=== PATIENT | female | born 1945 | race Caucasian/White ===

== ENCOUNTER → 2018-11-07 | Outpatient (CLI) | payer OTHER ==
--- NOTE | 2018-11-08 11:18 | Diagnostic Imaging Report ---
Solid-phase gastric emptying study Reason for examination: Post-prandial abdominal pain The protocol used for this study is based on the Consensus Recommendations for Gastric Scintigraphy by the [place] [employer] and the Society of Nuclear Medicine. Clinical information: The patient is not diabetic. The patient has not had prior gastrointestinal surgery. The patient is not on any medications expected to affect gastric motility. The patient has been fasting for at least 6 hours prior to this exam. Radiopharmaceutical: Tc-99m sulfur colloid 1 mCi Report: The radiopharmaceutical was added to 1/2 cup egg whites that were then prepared and served with 2 pieces of white bread toasted, 30 grams of jam and 4 ounces of water. The patient took the meal orally without difficulty. Images were obtained of the abdomen in the anterior and posterior projections at 10 minutes post the meal and at 1, 2, 3, and 4 hours. Uptake was determined from the geometric mean of the anterior and posterior counts and the counts were corrected for decay of the radiolabel. The percent gastric retention of the labeled meal at: 1 hour was 91% (normal 30-90%) 2 hours was 52% (normal <60%) 3 hours was 10% (normal <30%) 4 hours was 3% (normal <10%) Impression: Normal gastric emptying pattern. The findings do not support the clinical diagnosis of gastroparesis. Signed by: Dr. Clarice Trammell M.D. on 11/08/2018 11:15 AM
== END ==
LOC: NM 08:28
PROVIDERS: ATTEND Internal Medicine Gastroenterology
DX: R10.13 Epigastric pain (principal); R13.10 Dysphagia, unspecified; I10 Essential (primary) hypertension; E66.3 Overweight; Z71.3 Dietary counseling and surveillance
CPT/HCPCS: 78264; A9541

== ENCOUNTER → 2018-11-16 | Outpatient (CLI) | payer MEDICARE ==
--- NOTE | 2018-11-16 20:28 | Diagnostic Imaging Report ---
Hepatobiliary Scan with Gallbladder Ejection Fraction Clinical information: RUQ abdominal pain Technique: Following intravenous administration of 6.6 millicuries of Tc-99m mebrofenin, dynamic images of the abdomen in the anterior projection were obtained through 25 minutes. Sincalide (CCK analog) 1.5 micrograms was administered intravenously over 30 minutes with additional imaging for determination of gallbladder ejection fraction. Discussion: Perfusion of the liver is normal. Extraction of tracer by the liver parenchyma is normal. Tracer appears promptly within the biliary tract. The gallbladder begins to fill by 14 minutes post injection of tracer and fills adequately. Tracer is seen in the small bowel during the sincalide infusion. The gallbladder ejection fraction with sincalide is 26% (normal greater than 40%). Impression: 1. Filling of the gallbladder excludes acute cystic duct obstruction/acute cholecystitis. 2. The decreased gallbladder ejection fraction of 26% supports the clinical diagnosis of chronic cholecystitis/gallbladder dyskinesia. Signed by: Dr. Clarice Trammell M.D. on 11/16/2018 8:25 PM
== END ==
LOC: NM 11:18
PROVIDERS: ATTEND Internal Medicine
DX: R10.11 Right upper quadrant pain (principal)
CPT/HCPCS: 78227; A9537

== ENCOUNTER → 2019-04-05 | Outpatient (CLI) | payer MEDICARE ==
[~2019-04-05] MED LIST: BENICAR20 MG PO; ESTRADIOL1 MG PO; LIVALO2 MG PO; OMEPRAZOLE40 MG PO; POTASSIUM CITR10 MEQ PO; SYNTHROID75 MCG PO; VAGIFEM; [UNRECOGNIZED DRUG - OTHER] PO; [UNRECOGNIZED DRUG - OTHER] TOP; allegra PO
--- NOTE | 2019-04-05 09:45 | Diagnostic Imaging Report ---
EXAM: Gallbladder Ultrasound INDICATION: Epigastric pain ^[id number] ^0840 ^EPIG PAIN COMPARISON: None. TECHNIQUE: Transverse and longitudinal images of the gallbladder were obtained. FINDINGS: Liver: Increased hepatic echogenicity could be due to fatty infiltration. Normal in size measuring 13.9 cm. Main portal vein and normal in appearance with normal blood flow measuring 0.8 cm. Right kidney normal in appearance measuring 9.1 cm. Pancreas grossly unremarkable. Abdominal aorta grossly unremarkable measuring 1.8 cm. Inferior vena cava patent. Common bile duct measures 0.4 cm. Mild amount of sludge in the lumen of the gallbladder. No gallbladder wall thickening or pericholecystic fluid. Gallbladder wall measures 0.2 cm. Sonographic Mallory sign is negative. IMPRESSION: Increased hepatic echogenicity could be due to fatty infiltration. Mild sludge in the lumen of the gallbladder. No ductal dilatation. Signed by: Dr. Mika Ponce M.D. on 04/05/2019 9:42 AM
== END ==
LOC: US 08:07
PROVIDERS: ATTEND Surgery
DX: R10.13 Epigastric pain (principal)
CPT/HCPCS: 76705

== ENCOUNTER 2019-04-17 06:28 | Inpatient (IN) | payer MEDICARE ==
[2019-04-12 15:32] LABS: BILIRUBIN,URINE NEGATIVE (NEGATIVE); CLARITY,URINE SL CLOUDY (CLEAR); COLOR,URINE YELLOW (YELLOW); KETONES,URINE NEGATIVE (NEGATIVE); LEUKOCYTE ESTERASE ,URINE NEGATIVE (NEGATIVE); NITRITE,URINE NEGATIVE (NEGATIVE); PROTEIN,URINE DIPSTICK NEGATIVE (NEGATIVE); URINE UROBILINOGEN 0.2 mg/dL (0.2 - 1)
[2019-04-12 15:36] LABS: BASOPHILS % 0.5 % (0.0-1.0); EOSINOPHILS # (AUTO) 0.1 (0.0-0.4); HEMATOCRIT 38.9 % (34.2-44.1); HEMOGLOBIN 12.9 g/dL (12.0-16.0); LYMPHOCYTES # (AUTO) 2.5 (1.0-3.2); LYMPHOCYTES % 38.2 % (18.0-39.1); MEAN CORPUSCULAR HGB CONC 33.2 g/dL (31-35); MEAN CORPUSCULAR VOLUME 96.5 fL (81-99); MONOCYTES # (AUTO) 0.6 (0.2-0.8); MONOCYTES % 8.8 % (4.4-11.3); NEUTROPHILS # (AUTO) 3.3 (2.1-6.9); NEUTROPHILS % 50.2 % (38.7-80.0); PLATELET COUNT 270 x10e3/uL (140-360); RED BLOOD COUNT 4.03 x10e6/uL (3.6-5.1); RED CELL DISTRIBUTION WIDTH 11.9 % (11.7-14.4)
[2019-04-12 16:00] LABS: ALANINE AMINOTRANSFERASE 15 IU/L (0-55); ALBUMIN 3.5 g/dL (3.5-5.0); ALKALINE PHOSPHATASE 64 IU/L (40-150); ANION GAP 14.3 mmol/L (8-16); BLOOD UREA NITROGEN 22 mg/dL (7-26); BUN/CREATININE RATIO 25 (6-25); CALCIUM 9.9 mg/dL (8.4-10.2); CARBON DIOXIDE 25 mmol/L (22-29); CHLORIDE 103 mmol/L (98-107); CREATININE, SERUM 0.88 mg/dL (0.57-1.11); EST GLOMERULAR FILTRATION RATE > 60 ML/MIN (60-); GLUCOSE 84 mg/dL (74-118); POTASSIUM 4.3 mmol/L (3.5-5.1); SODIUM 138 mmol/L (136-145)
--- NOTE | 2019-04-12 16:39 | Diagnostic Imaging Report ---
EXAMINATION: CHEST 2 VIEWS INDICATION: Pre-operative COMPARISON: None FINDINGS: LINES/TUBES:None LUNGS:The lungs are well-inflated. No focal consolidation or pulmonary edema. PLEURA:No pleural effusion or pneumothorax. MEDIASTINUM:The cardiomediastinal silhouette appears normal in size and shape. BONES/SOFT TISSUES:No acute osseous injury. ABDOMEN:No free air under the diaphragm. IMPRESSION: No focal pneumonia or pulmonary edema. Signed by: Bulmaro Tracey MD on 04/12/2019 4:35 PM
[~2019-04-17] VITALS: Ht 162.6 cm; Wt 68.0 kg
[~2019-04-17 06:28] MED LIST changes: -allegra PO
--- OUTSIDE RECORDS SUMMARY | 2019-04-17 06:46 | XMS REPORT ---
Author Author [facility] Address Unknown Phone Unavailable Care Team Providers Care Franchise Manager Name Role Phone Sushma ESPANA Unavailable Unavailable ROSY ALCOCER Unavailable Unavailable Beth RIZVI Unavailable Unavailable Problems This patient has no known problems. Allergies, Adverse Reactions, Alerts This patient has no known allergies or adverse reactions. Medications This patient has no known medications. Results Test Description Test Time Test Comments Text Results Atomic Results Result Comments CHEST 2 VIEWS 2019-04-12 16:35:00 [place] [address] Patient Name: LAWRENCE BO MR #: [id number] : 1945 Age/Sex: 73/F Req #: [id number] Adm Physician: Ordered by: STEPHY ESPANA MD Report #: [id number] Location: [place] Room/Bed: Procedure: [id number] DX/CHEST 2 VIEWS Exam Date: Exam Time: REPORT STATUS: Signed EXAMINATION: CHEST 2 VIEWS INDICATION: Pre-operative COMPARISON: None FINDINGS: LINES/TUBES:None LUNGS:The lungs are well- inflated. No focal consolidation or pulmonary edema. PLEURA:No pleural effusion or pneumothorax. MEDIASTINUM:The cardiomediastinal silhouette appears normal in size and shape. BONES/SOFT TISSUES:No acute osseous injury. ABDOMEN:No free air under the diaphragm. IMPRESSION: No focal pneumonia or pulmonary edema. Signed by: Maria Isabel Santos MD on 04/12/2019 4:35 PM Dictated By: MARIA ISABEL SANTOS MD 34 Transcribed By: TETO on 04/12/191634 COPY TO: STEPHY ESPANA MD US GALLBLADDER 2019-04-05 09:40:00 [place] [address] Patient Name: LAWRENCE BO MR #: [id number] : 1945 Age/Sex: 73/F Req #: [id number] Adm Physician: Ordered by: STEPHY ESPANA MD Report #: [id number] Location: Room/Bed: Procedure: [id number] US/US GALLBLADDER Exam Date: 04/05/19 Exam Time: 40 REPORT STATUS: Signed EXAM: Gallbladder Ultrasound INDICATION: Epigastric pain [id number] EPIG PAIN COMPARISON: None. TECHNIQUE: Transverse and longitudinal images of the gallbladder were obtained. FINDINGS: Liver: Increased hepatic echogenicity could be due to fatty infiltration. Normal in size measuring 13.9 cm. Main portal vein and normal in appearance with normal blood flow measuring 0.8 cm. Right kidney normal in appearanc e measuring 9.1 cm. Pancreas grossly unremarkable. Abdominal aorta grossly unremarkable measuring 1.8 cm. Inferior vena cava patent. Common bile duct measures 0.4 cm. Mild amount of sludge in the lumen of the gallbladder. No gallbladder wall thickening or pericholecystic fluid. Gallbladder wall measures 0.2 cm. Sonographic Mallory sign is negative. IMPRESSION: Increased hepatic echogenicity could be due to fatty infiltration. Mild sludge in the lumen of the gallbladder. No ductal dilatation. Signed by: Dr. Mika Ponce M.D. on 04/05/2019 9:42 AM Dictated By: MIKA PONCE MD, MD 1 Transcribed By: TETO on 04/05/19941 COPY TO: STEPHY ESPANA MD HEPTOBILIARY W PHARM 2018-11-16 20:23:00 [place] [address] Patient Name: LAWRENCE BO MR #: [id number] : 1945 Age/Sex: 73/F Req #: [id number] Adm Physician: Ordered by: ROSY ALCOCER MD Report #: [id number] Location: [place] Room/Bed: Procedure: [id number] NM/HEPTOBILIARY W PHARM Exam Date: 11/16/18 Exam Time: 1200 REPORT STATUS: Signed Hepatobiliary Scan with Gallbladder Ejection Fraction Clinical information: RUQ abdominal pain Technique: Following intravenous administration of 6.6 millicuries of Tc-99m mebrofenin, dynamic images of the abdomen in the anterior projection were obtained through 25 minutes. Sincalide (CCK analog) 1.5 micrograms was administered intravenously over 30 minutes with additional imaging for determination of gallbladder ejection fraction. Discussion: Perfusion of the liver is normal. Extraction of tracer by the liver parenchyma is normal. Tracer appears promptly within the biliary tract. The gallbladder begins to fill by 14 min utes post injection of tracer and fills adequately. Tracer is seen in the small bowel during the sincalide infusion. The gallbladder ejection fraction with sincalide is 26% (normal greater than 40%). Impression: 1. Filling of the gallbladder excludes acute cystic duct obstruction/acute cholecystitis. 2. The decreased gallbladder ejection fraction of 26% supports the clinical diagnosis of chronic cholecystitis/gallbladder dyskinesia. Signed by: Dr. Philip Trammell M.D. on 11/16/2018 8:25 PM Dictated By: PHILIP TRAMMELL MD 24 COPY TO: ROSY ALCOCER MD GASTRIC EMPTYING 2018-11-08 11:13:00 [place] [address] Patient Name: LAWRENCE BO MR #: [id number] : 1945 Age/Sex: 73/F Req #: [id number] [facility] [place] Physician: Ordered by: DILLON RIZVI MD Report #: [id number] Location: [place] Room/Bed: Procedure: [id number] NM/GASTRIC EMPTYING Exam Date: 11/07/18 Exam Time: 0900 REPORT STATUS: Signed Solid-phase gastric emptying study Reason for examinat ion: Post-prandial abdominal pain The protocol used for this study is based on the Consensus Recommendations for Gastric Scintigraphy by the [place] [employer] and the Society of Nuclear Medicine. Clinical information: The patient is not diabetic. The patient has not had prior gastrointestinal surgery. The patient is not on any medications expected to affect gastric motility. The patient has been fasting for at least 6 hours prior to this exam. Radiopharmaceutical: Tc-99m sulfur colloid 1 mCi Report: The radiopharmaceutical was added to 1/2 cup egg whites that were then prepared and served with 2 pieces of white bread toasted, 30 grams of jam and 4 ounces of water. The patient took the meal orally without difficulty. Images were obtained of the abdomen in the anterior and posterior projections at 10 minutes post the meal and at 1, 2, 3, and 4 hours. Uptake was determined from the geometric mean of the anterior and posterior counts and the counts were corrected for decay of the radiolabel. The percent gastric retention of the labeled meal at: 1 hour was 91% (normal 30-90%) 2 hours was 52% (normal <60%) 3 hours was 10% (normal <30%) 4 hours was 3% (normal <10%) Impression: Normal gastric emptying pattern. The findings do not support the clinical diagnosis of gastroparesis. Signed by: Dr. Philip Trammell M.D. on 11/08/2018 11:15 AM Dictated By: PHILIP TRAMMELL MD 1115 Transcribed By: TETO on 11/08/181114 COPY TO: DILLON RIZVI MD
[2019-04-17] MEDS ORDERED: allegra PO (07:42)
[2019-04-17] MEDS ORDERED: BUPIVACAINE 0.25%/EPI 30ML SDV INJ ONE (07:52)
[2019-04-17] MEDS: SODIUM CHLORIDE 0.9% 1000ML 1,000 ML IV SCH (10:59)
[2019-04-17] MEDS: SODIUM CHLORIDE 0.9% 250ML IRRIG IR SCH ×5 (11:00→23:15)
[2019-04-17] MEDS ORDERED: PANTOPRAZOLE 40 MG 10ML VIAL IV SCH (11:00)
[2019-04-17] MEDS ORDERED: ACETAMINOPHEN 1000 MG/100 ML IV PRN (11:00)
[2019-04-17] MEDS ORDERED: HYDROMORPHONE 1MG/1ML INJ ONE ×2 (12:20→12:56)
--- NOTE | 2019-04-17 13:16 | Operative Report ---
DATE OF PROCEDURE: 04/17/2019 SURGEON: Dayton Soriano MD PREOPERATIVE DIAGNOSES: Hiatal hernia with gastroesophageal reflux disease and cholecystitis with gallbladder sludge. POSTOPERATIVE DIAGNOSES: Hiatal hernia with gastroesophageal reflux disease and cholecystitis with gallbladder sludge. OPERATIONS PERFORMED: Laparoscopic hiatal hernia repair with Jimi fundoplication and cholecystectomy. DISTRIBUTION ESTIMATOR: Rey Soriano MD. ANESTHESIA: General. COMPLICATIONS: None. ESTIMATED BLOOD LOSS: Minimal. DESCRIPTION OF PROCEDURE: With the patient lying in the bed in supine position under good general endotracheal anesthesia, the abdomen was prepped with Betadine solution and draped in the usual manner. A Veress needle was introduced in the left upper abdomen and pneumoperitoneum was established without any difficulty. An 11 mm trocar was placed in the left mid abdomen and a 10 mm video laparoscope was placed into the intraabdominal cavity. Under direct vision, two 5 mm trocars were placed in the subxiphoid area. Another 5 mm trocar was placed in the right subcostal area and another 11 mm trocar was placed in the left upper quadrant. Video laparoscopy at this point revealed some adhesions to the gallbladder. The rest of the abdominal exploration was within normal limits except for the hiatus, where there was some moderate size hiatal hernia. We decided to proceed with a hiatal hernia first. Using the Harmonic device, the right crura was exposed first and the esophagus was identified and circumferentially mobilized. The hiatal hernia was then reduced back to the intraabdominal cavity. The short gastrics were then taken down. After this was done, we had a good intraabdominal portion of the esophagus. There was a moderate size hiatal hernia present, which was closed by approximating the right and left crura with 4 sutures of 0 Ethibond. This gave us satisfactory repair without any tension. The patient had a bougie placed in the stomach prior to the repair. After this was done, the previously freed up fundus of the stomach was then brought in the retroesophageal position and the Jimi fundoplication was then performed using interrupted sutures of 0 Ethibond, bringing one side of the fundus to the anterior esophagus to the other side of the fundus. Three sutures were necessary. This created a nice floppy Jimi fundoplication without any tension whatsoever. After this was done, the bougie was removed. The NG tube was then placed in the stomach without any difficulty and perfect hemostasis was ascertained. We then went ahead and proceeded to do the cholecystectomy. The adhesions to the neck of the gallbladder were then slowly and carefully taken down. The peritoneum overlying the neck of the gallbladder was then opened and the cystic duct was identified. The cystic duct was followed to its junction with the common duct. The cystic duct was then circumferentially dissected away from the common duct, doubly clipped and divided. The cystic artery was similarly doubly clipped and divided. The gallbladder was then slowly and carefully taken off the liver bed using the cautery scissors and perfect hemostasis was ascertained. The gallbladder was then grasped through the umbilical port and removed without any difficulty. Video laparoscopy was then again carried out. The liver bed was found to be perfectly dry. The hiatus was similarly dry. All the excess fluid was aspirated. The pneumoperitoneum was evacuated and all the trocars were removed under direct vision. The fascia of the 11 mm trocars was approximated with 0 Vicryl. All layers were infiltrated on the way out with solution of 0.25% Marcaine. Subcutaneous tissue was approximated with 3-0 Vicryl and the skin was closed with subcuticular 5-0 Vicryl. Benzoin, Steri-Strips, and Band-Aids were applied. The sponge, lap, and needle count was correct. The patient tolerated the procedure well and returned to the recovery room in stable condition. MD BIANCA Arcos/YASMEEN /[id number]
--- NOTE | 2019-04-17 13:25 | NUR ---
ARRIVED VIA STRETCHER FROM PACU, AA&OX3, 2LNC , NGT TO Horacio GARCIA, PER PACU NURSE ANA HUANG, "MD Kareem ESPANA IS AWARE OF NOTHING COMING OUT OF NGT AND THAT NOTHING IS TO GO IN AT THIS TIME", PT AWAKE AT THIS TIME, ORIENTED TO ROOM AND CALL LIGHT SYSTEM, CALL LIGHT WITHIN REACH
[2019-04-17 13:48] VITALS: BP 130/61
[2019-04-17 13:56] VITALS: BP 124/66
[2019-04-17 14:13] VITALS: BP 130/61
--- NOTE | 2019-04-17 15:20 | NUR ---
SPOKE WITH MD Kareem ESPANA PER PT REQUEST, STATES SORE THROAT, ORDERS NOTED
[2019-04-17] MEDS ORDERED: LIDOCAINE HCL 2% LOCAL INJ 5 ML SDV VIAL INJ ONE (15:28)
[2019-04-17] MEDS ORDERED: GLYCOPYRROLATE INJ 1MG/ 5 ML SYR ONE (15:28)
[2019-04-17] MEDS ORDERED: ONDANSETRON HCL INJ 2MG/ML 2ML 2 MG/ML VIAL ONE (15:28)
[2019-04-17] MEDS ORDERED: FENTANYL CITRATE/PF 100MCG/2 ML INJ ONE (15:28)
[2019-04-17] MEDS ORDERED: DEXAMETHASONE SOD PHOS INJ 4 MG/ML VIAL ONE (15:28)
[2019-04-17] MEDS ORDERED: PROPOFOL IV EMULSION 10 MG/ML 20 ML VIAL ONE (15:28)
[2019-04-17] MEDS ORDERED: SEVOFLURANE INHAL SOLN 250 ML PEN BTL ONE (15:28)
[2019-04-17] MEDS ORDERED: EPHEDRINE SULFATE INJ 50 MG/10 ML SYR ONE (15:28)
[2019-04-17] MEDS ORDERED: MIDAZOLAM HCL 2 MG/2 ML VIAL ONE (15:28)
[2019-04-17] MEDS ORDERED: NEOSTIGMINE 5 MG/5ML SYR ONE (15:28)
[2019-04-17] MEDS ORDERED: ROCURONIUM BROMIDE 10 MG/ML 5ML VIAL ONE (15:28)
[2019-04-17] MEDS ORDERED: CHLORASEPTIC SPRAY 177 ML BTL MM PRN (15:30)
[2019-04-17 15:46] VITALS: BP 133/60
--- NOTE | 2019-04-17 15:46 | NUR ---
WITH STANDBY ASSIST, PT OOB TO BEDSIDE COMMODE, CALL LIGHT WITHIN REACH, PT REQUESTING TO SIT FOR A WHILE, AT SIDE
[2019-04-17] MEDS: ONDANSETRON HCL INJ 2MG/ML 2ML 2 MG/ML VIAL IV PRN ×2 (16:07→20:26)
--- NOTE | 2019-04-17 16:11 | NUR ---
PT ASSISTED BACK TO BED, C/O FEELING "LITTLE NAUSEATED AND HOT", PT MEDICATED PER MD ORDER FOR NAUSEA 121/69, HR 66, 92-94%, 16 RR, CALL LIGHT WITHIN REACH, EDUCATED TO CALL PRIOR TO GETTING UP, PT VERBALIZED UNDERSTANDING, AT BEDSIDE
--- NOTE | 2019-04-17 16:32 | NUR ---
PT RESTING IN BED, STATES "FEELS BETTER", CALL LIGHT WITHIN REACH
--- NOTE | 2019-04-17 17:48 | NUR ---
MD Kareem ESPANA INTO SEE PT, DISCUSSED POC, ADJUSTED NGT AND IRRIGATED , PT TOLERATED WELL, CALL LIGHT WITHIN REACH
--- NOTE | 2019-04-17 19:00 | NUR ---
RECEIVED PATIENT IN BEDSIDE SHIFT REPORT. PATIENT STATES SHE HAS SOME STRONG PAIN IN HER SHOULDERS FROM GAS BUILDUP, /, AND IN HER THROAT FROM THE NG TUBE. WILL PROVIDE MEDICATION WHEN AVAILABLE. NG TUBE TO R NARE WITH LOW CONTINUOUS SUCTION. R HAND IV ASYMPTOMATIC, INTACT, AND PATENT, RUNNING NS AT 100ML/HR. SCDS AND ILDA HOSE IN PLACE. BEDSIDE COMMODE IN ROOM, PATIENT REMINDED TO CALL FOR ASSISTANCE UP, VERBALIZED UNDERSTANDING. NO S&S OF DISTRESS NOTED. BED LOCKED IN LOWEST POSITION, SIDE RAILS UPX2, CALL LIGHT IN REACH.
[2019-04-17 20:00] VITALS: BP 118/59
[2019-04-17] MEDS: HYDROMORPHONE 1MG/1ML INJ IV PRN (20:26)
[2019-04-17] MEDS: PANTOPRAZOLE 40 MG 10ML VIAL IV SCH (20:26)
[2019-04-18] VITALS (9 sets, daily range): BP systolic 118–150; BP diastolic 59–78
[2019-04-18] MEDS: SODIUM CHLORIDE 0.9% 1000ML 1,000 ML IV SCH ×3 (01:11→18:37)
[2019-04-18] MEDS: SODIUM CHLORIDE 0.9% 250ML IRRIG IR SCH ×3 (03:10→11:00)
[2019-04-18] MEDS: HYDROMORPHONE 1MG/1ML INJ IV PRN ×3 (04:46→19:39)
[2019-04-18] MEDS: ONDANSETRON HCL INJ 2MG/ML 2ML 2 MG/ML VIAL IV PRN ×2 (04:46→19:39)
[2019-04-18 05:31] LABS: BASOPHILS % 0.1 % (0.0-1.0); HEMATOCRIT 33.9 % (34.2-44.1); HEMOGLOBIN 11.1 g/dL (12.0-16.0); LYMPHOCYTES # (AUTO) 1.6 (1.0-3.2); LYMPHOCYTES % 17.4 % (18.0-39.1); MEAN CORPUSCULAR HEMOGLOBIN 31.8 pg (28-32); MEAN CORPUSCULAR HGB CONC 32.7 g/dL (31-35); MEAN CORPUSCULAR VOLUME 97.1 fL (81-99); MONOCYTES % 11.2 % (4.4-11.3); NEUTROPHILS # (AUTO) 6.3 (2.1-6.9); PLATELET COUNT 238 x10e3/uL (140-360); RED BLOOD COUNT 3.49 x10e6/uL (3.6-5.1); RED CELL DISTRIBUTION WIDTH 12.2 % (11.7-14.4)
[2019-04-18 05:53] LABS: ANION GAP 16.4 mmol/L (8-16); BLOOD UREA NITROGEN 12 mg/dL (7-26); BUN/CREATININE RATIO 13 (6-25); CARBON DIOXIDE 23 mmol/L (22-29); CHLORIDE 105 mmol/L (98-107); CREATININE, SERUM 0.91 mg/dL (0.57-1.11); EST GLOMERULAR FILTRATION RATE > 60 ML/MIN (60-); GLUCOSE 93 mg/dL (74-118); POTASSIUM 4.4 mmol/L (3.5-5.1); SODIUM 140 mmol/L (136-145)
--- NOTE | 2019-04-18 07:14 | NUR ---
pt awake alert resp even and unlabored at this time no distress noted, pt able to make needs known call light in reach. ngt in place.
--- NOTE | 2019-04-18 10:53 | NUR ---
ngt tube dc'ed, pt tolerated well.
--- NOTE | 2019-04-18 12:29 | NUR ---
IMM EXPLAINED TO PATIENT. PATIENT SIGNED, PLACED IN CHART, COPY TO CARE TRANSITIONS FOLDER
--- NOTE | 2019-04-18 14:35 | NUR ---
Visit made by the Spiritual Care Department Pastoral Visitor, Petrona Jacobs. PV provided pastoral presence, prayer, hospitality, and supportive listening. Pastoral Visitor informed pt/family of the scope of Field Agent Services and availability. LEIA CONNOR Climatologist Spiritual Care Department O: [phone] Pager: [phone] ([phone] calling from)
--- NOTE | 2019-04-18 19:00 | NUR ---
RECEIVED PATIENT IN BEDSIDE SHIFT REPORT. PATIENT RESTING IN BED AT THIS TIME. MODERATE PAIN NOTED, MEDICATED BY OFFGOING NURSE. NO S&S OF DISTRESS NOTED. REMINDED PATIENT OF IMPORTANCE OF WALKING TO RELIEVE GAS PAINS IN ABDOMEN AND CHEST AND EXPLAINED THAT IT CAN TAKE TIME FOR THE AIR TO PASS OR BE REABSORBED, PATIENT REPORTS FEELING VERY ANXIOUS ABOUT IT. WILL CONTINUE TO MONITOR. BED LOCKED IN LOWEST POSITION, SIDE RAILS UPX2, CALL LIGHT IN REACH.
--- NOTE | 2019-04-18 20:14 | NUR ---
report given to oncoming nurse, pt stable at this time
[2019-04-18] MEDS: PANTOPRAZOLE 40 MG 10ML VIAL IV SCH (21:18)
[2019-04-19] VITALS (8 sets, daily range): BP systolic 137–166; BP diastolic 68–79
[2019-04-19] MEDS: SODIUM CHLORIDE 0.9% 1000ML 1,000 ML IV SCH ×2 (02:43→17:25)
--- NOTE | 2019-04-19 03:44 | NUR ---
PATIENT AMBULATING IN HALLWAY AT THIS TIME. STEADY GAIT NOTED.
[2019-04-19] MEDS ORDERED: BISACODYL 10 MG SUPP PR ONE ×2 (16:45→17:15)
--- NOTE | 2019-04-19 19:00 | NUR ---
RECEIVED PATIENT IN BEDSIDE SHIFT REPORT. PATIENT RESTING AT THIS TIME. HEADACHE 01/18 REPORTED, DAY NURSE TO PROVIDE PAIN MEDICATION BEFORE LEAVING. NO S&S OF DISTRESS NOTED. BED LOCKED IN LOWEST POSITION, SIDE RAILS UPX2, CALL LIGHT IN REACH.
[2019-04-19] MEDS: ACETAMINOPHEN 1000 MG/100 ML IV PRN (19:04)
[2019-04-19] MEDS: PANTOPRAZOLE 40 MG 10ML VIAL IV SCH (20:08)
--- NOTE | 2019-04-19 21:10 | NUR ---
PATIENT AMBULATING IN HALLWAY AT THIS TIME. STATES BEFORE LEAVING ROOM, SHE HAD A MODERATELY SIZED BM AND PASSED GAS. STEADY GAIT NOTED.
[2019-04-20] VITALS: BP 146/70
[2019-04-20] MEDS: ACETAMINOPHEN 1000 MG/100 ML IV PRN (01:18)
[2019-04-20 04:00] VITALS: BP 149/67
[2019-04-20 07:32] VITALS: BP 150/68
[2019-04-20 07:40] VITALS: BP 150/68
[2019-04-20] MEDS: SODIUM CHLORIDE 0.9% 1000ML 1,000 ML IV SCH (08:26)
[2019-04-20] MEDS ORDERED: BISACODYL 10 MG SUPP PR ONE (09:30)
[2019-04-20 12:06] VITALS: BP 155/70
[2019-04-20] MEDS ORDERED: OLMESARTAN MEDOXOMIL 5 MG TABLET PO SCH (13:40)
[2019-04-20] MEDS ORDERED: OLMESARTAN 20 MG TAB PO SCH (15:15)
[2019-04-20 16:21] VITALS: BP 159/72
[2019-04-20] MEDS ORDERED: TYLENOL WITH C1 EACH PO (17:48)
--- NOTE | 2019-04-20 18:05 | NUR ---
PT OFF UNIT TO HOME AT THIS TIME
== END 2019-04-20 18:05 | disposition home or self-care (01) | DRG 328 ==
LOC: OR 06:28 → PACU V 11:00 → MED/SURG 13:33 → OBSVTOIN 04-20 09:20
PROVIDERS: ADMIT Surgery; ATTEND Surgery
PROC: 0DV44ZZ Restriction of Esophagogastric Junction, Percutaneous Endoscopic Approach (ICD-10-PCS; 2019-04-17)
PROC: 0BQT4ZZ Repair Diaphragm, Percutaneous Endoscopic Approach (ICD-10-PCS; 2019-04-17)
PROC: 0FT44ZZ Resection of Gallbladder, Percutaneous Endoscopic Approach (ICD-10-PCS; principal; 2019-04-17 07:30)
DX: K21.9 Gastro-esophageal reflux disease without esophagitis (principal); K44.9 Diaphragmatic hernia without obstruction or gangrene; K81.9 Cholecystitis, unspecified; K82.8 Other specified diseases of gallbladder; I10 Essential (primary) hypertension; Z88.8 Allergy status to other drugs, medicaments and biological substances; Z91.041 Radiographic dye allergy status
CPT/HCPCS: 36415; 71046; 80048; 80053; 81003; 85025; 88304; 93005; C1766; G0378; J1100; J1170; J2001; J2250; J2405; J3010; J7030

== ENCOUNTER → 2020-10-18 | Day surgery (SDC) | payer MEDICARE ==
[2020-10-15 11:35] LABS: BASOPHILS % 0.3 % (0.0-1.0); EOSINOPHILS # (AUTO) 0.1 (0.0-0.4); EOSINOPHILS % 1.2 % (0.0-6.0); HEMATOCRIT 38.9 % (34.2-44.1); HEMOGLOBIN 12.7 g/dL (12.0-16.0); LYMPHOCYTES # (AUTO) 2.1 (1.0-3.2); MEAN CORPUSCULAR HEMOGLOBIN 32.2 pg (28-32); MEAN CORPUSCULAR HGB CONC 32.6 g/dL (31-35); MEAN CORPUSCULAR VOLUME 98.5 fL (81-99); MONOCYTES # (AUTO) 0.6 (0.2-0.8); MONOCYTES % 8.6 % (4.4-11.3); NEUTROPHILS # (AUTO) 3.7 (2.1-6.9); NEUTROPHILS % 57.6 % (38.7-80.0); PLATELET COUNT 249 x10e3/uL (140-360); RED BLOOD COUNT 3.95 x10e6/uL (3.6-5.1); RED CELL DISTRIBUTION WIDTH 12.3 % (11.7-14.4)
[2020-10-15 11:54] LABS: ANION GAP 14.1 mmol/L (8-16); CREATININE, SERUM 1.01 mg/dL (0.57-1.11); POTASSIUM 4.1 mmol/L (3.5-5.1)
[~2020-10-18] MED LIST changes: +LIDOCAINE HCL 2% LOCAL INJ 5 ML SDV VIAL INJ ONE; +PROPOFOL IV EMULSION 10 MG/ML 20 ML VIAL ONE; +TYLENOL WITH C1 EACH PO; +VITAMIN B122500 MCG IM; +VITAMIN C500 MG PO; +VITAMIN D310 MCG PO; +VITAMIN K240 MCG PO; +allegra PO
[2020-10-18 10:15] VITALS: BP 132/62
== END | disposition home or self-care (01) ==
LOC: OR 06:33
PROVIDERS: ATTEND Surgery
DX: R13.10 Dysphagia, unspecified (principal); K44.9 Diaphragmatic hernia without obstruction or gangrene; K21.9 Gastro-esophageal reflux disease without esophagitis; Z98.890 Other specified postprocedural states; G47.33 Obstructive sleep apnea (adult) (pediatric); I10 Essential (primary) hypertension; E78.5 Hyperlipidemia, unspecified; E03.9 Hypothyroidism, unspecified; N20.0 Calculus of kidney; Z88.8 Allergy status to other drugs, medicaments and biological substances; Z88.6 Allergy status to analgesic agent; Z91.041 Radiographic dye allergy status; Z01.810 Encounter for preprocedural cardiovascular examination; Z01.812 Encounter for preprocedural laboratory examination; Z01.818 Encounter for other preprocedural examination; Z20.822 Contact with and (suspected) exposure to COVID-19
CPT/HCPCS: 36415; 43235; 71046; 80048; 85025; 93005; J2001; J2704; U0002; 43239

== ENCOUNTER → 2021-07-18 | Day surgery (SDC) | payer MEDICARE ==
[~2021-07-18] MED LIST changes: +ADVIL200 M1 PO; +CEPHALEXIN250 MG PO; -LIDOCAINE HCL 2% LOCAL INJ 5 ML SDV VIAL INJ ONE; +MIDAZOLAM HCL 2 MG/2 ML VIAL ONE; +ONDANSETRON HCL INJ 2MG/ML 2ML 2 MG/ML VIAL ONE; +POVIDONE IODINE 0.05% 0.05 % ML PO ONE; +PRILOSEC OTC20 MG PO; +[UNRECOGNIZED DRUG - OTHER] VG
[2021-07-18 10:03] VITALS: BP 126/79
== END | disposition home or self-care (01) ==
LOC: OR 06:45
PROVIDERS: ATTEND Surgery
DX: K52.9 Noninfective gastroenteritis and colitis, unspecified (principal); D12.5 Benign neoplasm of sigmoid colon; K57.30 Diverticulosis of large intestine without perforation or abscess without bleeding; K21.9 Gastro-esophageal reflux disease without esophagitis; G47.33 Obstructive sleep apnea (adult) (pediatric); E03.9 Hypothyroidism, unspecified; I10 Essential (primary) hypertension; R00.1 Bradycardia, unspecified; E78.5 Hyperlipidemia, unspecified; N20.0 Calculus of kidney; F41.9 Anxiety disorder, unspecified; Z88.8 Allergy status to other drugs, medicaments and biological substances; Z91.041 Radiographic dye allergy status; Z01.810 Encounter for preprocedural cardiovascular examination; Z01.812 Encounter for preprocedural laboratory examination; Z20.822 Contact with and (suspected) exposure to COVID-19; Z79.899 Other long term (current) drug therapy
CPT/HCPCS: 45380; 88305; 93005; J2250; J2405; J2704; U0002; 45384